=== PATIENT | female | born 1995 | race Caucasian/White ===

== ENCOUNTER 2020-10-31 19:10 | Emergency (ER) | payer OTHER, SELFPAY ==
[2020-10-31 19:19] VITALS: BP 113/73; PULSE 88; RESP 16; TEMP 36.7; O2SAT 100
--- NOTE | 2020-10-31 19:35 | DI.US.S_ITS ---
PROCEDURE: US PELVIC COMPLETE INDICATIONS: PELVIC PAIN, LATE MENSES TECHNIQUE: Real-time scanning was performed of the pelvic organs, with image documentation. Additional endovaginal scanning was necessary due to incomplete visualization of the adnexal and endometrial structures by transabdominal scanning. COMPARISON: None. FINDINGS: Uterus: Uterus measures 8.8 x 5.9 x 4.2 cm in size. The endometrium measures 11 mm in combined thickness. Trace amount of fluid is seen within endometrium. No endometrial mass. No discrete uterine fibroid. Ovaries: Right ovary measures 2.6 x 1.5 x 1.8 cm in size and is within normal limits. Left ovary measures 3.4 x 2.4 x 2.2 cm in size. A dominant follicle measures 2 x 1.6 x 1.4 cm is seen in left ovary. No solid appearing ovarian lesion. Normal arterial and venous flow is seen in bilateral ovaries on color Doppler images. Other: No pathologic free abdominal or pelvic fluid. IMPRESSION: 1. No gross abnormality is seen in uterus and endometrium. 2. Dominant follicle noted in left ovary as above. No gross solid appearing ovarian lesion. No evidence of ovarian torsion. Dictated by: Josafat Stoddard M.D. on 10/31/2020 at 20:46 Approved by: Josafat Stoddard M.D. on 10/31/2020 at 20:57
--- NOTE | 2020-10-31 19:55 | ED_ITS ---
HPI - Abdominal Pain General Chief Complaint: Abdominal Pain Stated Complaint: Stomach Cramps Time Seen by Provider: 10/31/20 19:15 Source: patient Mode of arrival: Ambulatory Limitations: no limitations History of Present Illness HPI narrative: 25F nonsmoker without significant medical history presents with her and a chief complaint of 24 hours of persistent suprapubic pain. She states that she had been in her normal state of health when she started developing this moderately severe deep achy type pain yesterday. She states that there is always a constant level of discomfort but there are episodes of significantly worsening spasms in the same area without provocation or palliation that last about 45 minutes. She denies dysuria, frequency or urgency. She denies vaginal bleeding or discharge. Patient has no nausea, vomiting or change in appetite. She has had no constipation or diarrhea. She denies fever or chills. She states that her menstrual cycle is about 3 weeks late and over the past few months she has increasingly been late for her menses. She has taken multiple tests at home which have been negative. She denies any injury and is otherwise well and free of complaint. Related Data Previous Rx's Medication Instructions Recorded ketorolac 10 mg PO Q6H PRN #14 tab 10/31/20 Allergies Allergy/AdvReac Type Severity Reaction Status Date / Time No Known Drug Allergies Allergy Verified 10/31/20 21:18 Review of Systems Constitutional Constitutional: Denies chills, Denies fatigue, Denies fever(s), Denies frequent falls, Denies lethargy and Denies weakness Eyes Eyes: Denies change in vision, Denies eye discharge, Denies irritation and Denies loss of vision ENT Ears, Nose, Mouth, and Throat: Denies change in voice, Denies dizziness, Denies neck pain, Denies sore throat and Denies throat swelling Cardiovascular Cardiovascular: Denies chest pain, Denies irregular heart rhythm, Denies lightheadedness, Denies palpitations, Denies dyspnea, Denies dyspnea on exertion and Denies orthopnea Respiratory Respiratory: Denies cough, Denies dyspnea, Denies dyspnea on exertion and Denies wheezing Gastrointestinal Gastrointestinal: Denies abdominal pain, Denies change in bowel habits, Denies diarrhea, Denies nausea and Denies vomiting Genitourinary Genitourinary: Reports pelvic pain Musculoskeletal Musculoskeletal: Denies neck pain and Denies numbness Integumentary/Breasts Skin/Breast: Denies pruritus, Denies erythema, Denies rash and Denies wounds Neurologic Neurologic: Denies behavioral changes, Denies confusion, Denies dizziness, Denies frequent falls, Denies loss of vision, Denies numbness and Denies weakness Psychiatric Psychiatric: Denies anxiety, Denies behavioral changes, Denies confusion, Denies depression, Denies homicidal ideation and Denies suicidal ideation Endocrine Endocrine: Denies fatigue, Denies flushing and Denies palpitations Hematologic/Lymphatic Hematologic/Lymphatic: Denies easy bruising Allergic/Immunologic Allergic/Immunologic: Denies urticaria, Denies throat swelling and Denies wheezing Patient History alcohol intake frequency: 0-2 drinks per day Substance Use Type: does not use Exam Narrative Exam Narrative: GENERAL: [25] year old patient appears stated age. Well- nourished, well-developed patient, in mild distress. HEAD: Atraumatic. Normocephalic. EYES: Pupils equal round and reactive. Extraocular motions intact. No scleral icterus. No injection or drainage. ENT: Nose without bleeding, purulent drainage. Throat without erythema, tonsillar hypertrophy or exudate. Airway patent. NECK: Trachea midline. Non tender CARDIOVASCULAR: Regular rate and rhythm without murmurs, gallops, or rubs. RESPIRATORY: Clear to auscultation. Breath sounds equal bilaterally. No wheezes, rales, or rhonchi. GASTROINTESTINAL: Abdomen soft, mild supra pubic tenderness, nondistended. EXTREMITIES: No edema or joint tenderness. BACK: Nontender without deformity or crepitance. No flank tenderness. NEURO: AOx3. SKIN: No rash or erythema of visible areas Initial Vital Signs Initial Vital Signs: Vital Signs Temperature 98.0 F 10/31/20 19:19 Pulse Rate 88 10/31/20 19:19 Respiratory Rate 16 10/31/20 19:19 Blood Pressure 113/73 10/31/20 19:19 Pulse Oximetry 100 10/31/20 19:19 Course Orders Ordered: ED Orders 10/31/20 19:35 US pelvic complete Stat 10/31/20 19:50 ABO RH Type Stat Basic Metabolic Panel Stat Complete Blood Count AUTO DIFF Stat HCG Quantitative /Beta subunit Stat Discontinued Medications Ketorolac Tromethamine (Ketorolac 60 Mg/2 Ml Vial) 15 mg IV NOW ONE Stop: 10/31/20 21:14 Last Admin: 10/31/20 21:18 Dose: 15 mg Documented by: TANYA Vital Signs Vital signs: Vital Signs - 8 hr 10/31/20 19:19 10/31/20 21:05 10/31/20 21:40 Temperature 98.0 F Pulse Rate 88 76 70 Respiratory Rate 16 14 Blood Pressure 113/73 102/72 94/64 Pulse Oximetry 100 100 97 MDM - Abdominal Pain Lab Data Result diagrams: 10/31/20 19:50 10/31/20 19:50 Labs: Lab Results 10/31/20 10/31/20 10/31/20 Range/Units 19:50 19:50 19:50 WBC 9.6 (4.5-11.0) X10^3/uL RBC 4.83 (4.0-5.2) X10^6/uL Hgb 13.9 (12.0-16.0) g/dL Hct 41.6 (36-46) % MCV 86.0 (80-100) fL MCH 28.9 (26-34) PG MCHC 33.5 (30-36) % RDW 13.0 (11.6-14.8) % Plt Count 276 (150-400) X10^3/uL Neut % (Auto) 62.0 (50-75) % Lymph % (Auto) 25.4 (25-40) % Dyer % (Auto) 7.5 (3-14) % Eos % (Auto) 4.4 H (2-4) % Baso % (Auto) 0.7 (0-2) % Neut # (Auto) 6000 (1493-2434) /uL Lymph # (Auto) 2500 (3186-2043) /uL Dyer # (Auto) 700 (0-900) /uL Eos # (Auto) 400 (0-450) /uL Baso # (Auto) 100 (0-100) /uL Sodium 141 (137-145) mmol/L Potassium 3.5 (3.4-5.1) mmol/L Chloride 102 (98-107) mmol/L Carbon Dioxide 31 (22-32) mmol/L BUN 11 (7-17) mg/dL Creatinine 0.67 (0.52-1.04) mg/dL Estimated GFR > 60.0 (>60) mL/min BUN/Creatinine Ratio 16.4 (6-22) Glucose 93 (70-100) mg/dL Calcium 9.5 (8.4-10.2) mg/dL HCG, Quant < 2.4 mIU/mL Blood Type O Positive Point of care testing: Point of Care Testing Test Results Negative Urine Dip Bedside Urine Glucose Negative Bedside Urine Bilirubin - Negative Bedside Urine Ketone - Negative Urine Specific Turner 1.030 Bedside Urine Occult Blood - Negative Bedside Urine pH 6.0 Bedside Urine Protein - Negative Bedside Urine Urobilinogen - Negative Bedside Urine Nitrite - Negative Bedside Urine Leukocytes - Negative Esterase Imaging Data US - SUPERVISOR NUCLEAR MEDICINE: Radiologist's Impression: Mirna Ashleynarcisa 25 F [address] [id number] ReportSigned Patient: Mirna AshleynMR#: [id number]: 1995Acct: [id number]/Sex: 25 / FDate of Service: 10/31/20Loc: EDAccession Number: [id number] Procedure: US pelvic complete Ordering Provider: Antonio Francis D.O. PROCEDURE: US PELVIC COMPLETE INDICATIONS: PELVIC PAIN, LATE MENSES TECHNIQUE: Real-time scanning was performed of the pelvic organs, with image documentation. Additional endovaginal scanning was necessary due to incomplete visualization of the adnexal and endometrial structures by transabdominal scanning. COMPARISON: None. FINDINGS: Uterus: Uterus measures 8.8 x 5.9 x 4.2 cm in size. The endometrium measures 11 mm in combined thickness. Trace amount of fluid is seen within endometrium. No endo metrial mass. No discrete uterine fibroid. Ovaries: Right ovary measures 2.6 x 1.5 x 1.8 cm in size and is within normal limits. Left ovary measures 3.4 x 2.4 x 2.2 cm in size. A dominant follicle measures 2 x 1.6 x 1.4 cm is seen in left ovary. No solid appearing ovarian lesion. Normal chase rial and venous flow is seen in bilateral ovaries on color Doppler images. Other: No pathologic free abdominal or pelvic fluid. IMPRESSION: 1. No gross abnormality is seen in uterus and endometrium. 2. Dominant follicle noted in left ovary as above. No gross solid appearing ovarian lesion. No evidence of ovarian torsion. Dictated by: Josafat Stoddard M.D. on 10/31/2020 at 20:46 MDM Narrative Medical decision making narrative: 25-year-old female with about 24 hours of suprapubic cramping. She has not had a. and quite some time and is 3 weeks late raising the concern of or other gynecologic problem. Urine and serum HCG negative. Pelvic ultrasound unremarkable. Urine is clean. No pelvic discharge. No signs of sepsis. We had lengthy discussion at the bedside regarding the utility of advanced imaging such as CT and sure the opinion that given how well she appears, lack of fever, ongoing pain or elevated white blood cell count that we would hold off for now. Return precautions given and q uestions answered to her apparent satisfaction Discharge Plan Departure Patient Disposition: Home Clinical Impression: Abdominal pain, suprapubic Instructions: DI for Pelvic Pain Activity Restrictions/Additional Instructions: *You have been diagnosed with [lower abdominal pain with very reassuring labs, urine and ultrasound. We discussed doing advanced imaging such as a CT scan and agree told off for now] *What to do: *Take medications as directed *Follow up with your primary care provider in 2-3 days, call for an appointment. Let them know you were seen in the Emergency Department and that we ask that you be seen in follow up *Return to ER if you should have any new, worsening or concerning symptoms, such as increasing pain, vaginal bleeding, discharge, fever greater than 101 F or other bothersome symptoms Prescriptions: New ketorolac 10 mg tablet 10 mg PO Q6H PRN (Reason: pain) Qty: 14 RF: 0
[2020-10-31 20:06] LABS: Add Manual Diff / Slide Review NO; Basophils Absolute Auto 100 /uL (0-100); Basophils Percent Auto 0.7 % (0-2); Eosinophils Absolute Auto 400 /uL (0-450); Eosinophils Percent Auto 4.4 % (2-4); Hematocrit 41.6 % (36-46); Hemoglobin 13.9 g/dL (12.0-16.0); Lymphocytes Absolute Auto 2500 /uL (1100-4500); Lymphocytes Percent Auto 25.4 % (25-40); Mean Corpuscular HGB Conc 33.5 % (30-36); Mean Corpuscular Hemoglobin 28.9 PG (26-34); Monocytes Absolute Auto 700 /uL (0-900); Monocytes Percent Auto 7.5 % (3-14); Neutrophils Absolute Auto 6000 /uL (1500-7000); Platelet Count 276 X10^3/uL (150-400); Red Blood Cell Count 4.83 X10^6/uL (4.0-5.2); White Blood Cell Count 9.6 X10^3/uL (4.5-11.0)
[2020-10-31 20:18] LABS: BUN Creatinine Ratio 16.4 (6-22); Blood Urea Nitrogen 11 mg/dL (7-17); Calcium 9.5 mg/dL (8.4-10.2); Carbon Dioxide 31 mmol/L (22-32); Chloride 102 mmol/L (98-107); Estimated Glomerular Filt Rate > 60.0 mL/min (>60); Glucose 93 mg/dL (70-100); HEMOLYSIS < 15 (0-50); Potassium 3.5 mmol/L (3.4-5.1); Sodium 141 mmol/L (137-145)
[2020-10-31 20:35] LABS: HCG Quantitative /Beta subunit < 2.4 mIU/mL
[2020-10-31 21:05] VITALS: BP 102/72; PULSE 76; O2SAT 100
[2020-10-31] MEDS: KETOROLAC 60 MG/2 ML VIAL 15 MG IV (21:18)
[2020-10-31 21:40] VITALS: BP 94/64; PULSE 70; RESP 14; O2SAT 97
== END 2020-10-31 21:41 | disposition home or self-care (01) ==
PROVIDERS: Emergency Provider Emergency Medicine
DX: R10.2 Pelvic and perineal pain (principal)
CPT/HCPCS: 36415; 76830; 76856; 80048; 81003; 81025; 84702; 85025; 86900; 86901; 96374; 99284; J1885